=== PATIENT | male | born 1970 | race Caucasian/White ===

== ENCOUNTER 2017-02-04 21:29 | Emergency (ER) | payer OTHER, MEDICAID ==
[~2017-02-04] VITALS: Ht 188 cm; Wt 134.0 kg
[2017-02-04] MEDS ORDERED: KETOROLAC 30 MG/1 ML ONE (22:56)
[2017-02-04] MEDS ORDERED: ONDANSETRON 2MG/ML, 2ML ONE (22:56)
[2017-02-04] MEDS ORDERED: ONDANSETRON 2MG/ML, 2ML IVPush ONE (23:00)
[2017-02-04] MEDS ORDERED: KETOROLAC 30 MG/1 ML IM ONE (23:00)
[2017-02-04] MEDS ORDERED: ONDANSETRON ODT 4 MG PO ONE (23:00)
[2017-02-04] MEDS ORDERED: KETOROLAC 30 MG/1 ML IVPush ONE (23:00)
[2017-02-04 23:02] LABS: HEMATOCRIT 47.3 % (39.2-51.8); HEMOGLOBIN 16.4 g/dL (13.7-18.0); WHITE BLOOD COUNT 9.4 x10^3/uL (3.4-10)
[2017-02-04 23:11] LABS: ASPARTATE AMINO TRANSFERASE 15 U/L (15-37); BLOOD UREA NITROGEN 12 mg/dL (7-18)
[2017-02-04 23:15] LABS: IS PT STATUS REG ER OR PRE ER? YES
[2017-02-05 00:36] LABS: PH, VENOUS 7.398 pH (7.320-7.420)
[2017-02-05 01:35] VITALS: BP 141/91
== END 2017-02-05 01:37 | disposition home or self-care (01) ==
LOC: ED 22:33
DX: R07.89 Other chest pain (principal); E11.65 Type 2 diabetes mellitus with hyperglycemia; I10 Essential (primary) hypertension; F17.200 Nicotine dependence, unspecified, uncomplicated
CPT/HCPCS: 36415; 71020; 80053; 82010; 82803; 84484; 85025; 93005; 96374; 96375; 99285; J1885; J2405